=== PATIENT | male | born 1940 | race Hispanic/Latino ===

== ENCOUNTER 2017-05-09 12:20 | Emergency (ER) | payer MEDICARE ==
[2017-05-09 13:24] LABS: #Basophils 0.1 thou/uL (0.0-0.2); #Eosinphils 0.4 thou/uL (0.0-0.7); #Monocytes 0.5 thou/uL (0.11-0.59); #Neutrophils 4.1 thou/uL (1.40-6.50); %Eosinophils 6.9 % (0.0-10.0); %Lymphocytes 16.9 % (21.0-51.0); %Monocytes 7.4 % (0.0-10.0); Mean Platelet Volume 7.8 fL (7.4-10.4); Red Blood Cell (RBC) Count 5.18 mill/uL (4.70-6.10); White Blood Cell (WBC) Count 6.1 thou/uL (4.8-10.8)
[2017-05-09 13:36] LABS: ALT (SGPT) 23 U/L (8-55); AST (SGOT) 14 U/L (5-34); Alkaline Phosphatase 104 U/L (40-150); Anion Gap 13 mmol/L (10-20); BUN (Urea Nitrogen) 23 mg/dL (8.4-25.7); Calc. Creatinine Clearance 0 mL/min (70-130); Calcium 9.2 mg/dL (7.8-10.44); Carbon Dioxide 27 mmol/L (23-31); Chloride 102 mmol/L (98-107); Estimated GFR-MDRD 86; Globulin 3.7 g/dL (2.4-3.5); Lipase 21 U/L (8-78); Protein, Total 7.8 g/dL (5.8-8.1)
[2017-05-09] MEDS ORDERED: traMADol HCl 50 MG TAB ONE (14:11)
--- NOTE | 2017-05-09 14:54 | ULT ---
RIGHT UPPER QUADRANT ULTRASOUND: Comparison: None. History: Abdominal pain. Technique: Multiplanar grayscale and color doppler images were obtained in a right upper quadrant abd ominal ultrasound. FINDINGS: The liver demonstrates increased echogenicity without focal lesions or intrahepatic biliary dilatatio n. A large gallstone is seen in the gallbladder. There is no gallbladder wall thickening or perichole cystic fluid. The common bile duct could not be visualized. There is a cyst in the right kidney measuring 2.2 cm in greatest dimension. There is no evidence of h ydronephrosis or calculus in the right kidney which measures 11.9 cm in length. IMPRESSION: 1. Cholelithiasis. 2. Fatty liver. 3. Right renal cyst. POS: NITZA
== END 2017-05-09 14:20 | disposition home or self-care (01) ==
LOC: SCSER 12:20
DX: K80.20 Calculus of gallbladder without cholecystitis without obstruction (principal); E11.9 Type 2 diabetes mellitus without complications; E78.5 Hyperlipidemia, unspecified; I10 Essential (primary) hypertension; Z79.899 Other long term (current) drug therapy; Z79.84 Long term (current) use of oral hypoglycemic drugs
CPT/HCPCS: 76705; 80053; 83690; 85025

== ENCOUNTER 2018-08-12 17:20 | Emergency (ER) | payer MEDICARE ==
--- NOTE | 2018-08-12 18:08 | RAD ---
CHEST TWO VIEWS: History: Cough. Comparison: 12-26-17 FINDINGS: There is mild ectasia of the thoracic aorta. Lungs are mildly hypoinflated with vascular crowding and subsegmental atelectasis. No acute osseous abnormality. IMPRESSION: Hypoinflation, otherwise no acute intrathoracic abnormality. POS: H
== END 2018-08-12 18:20 | disposition home or self-care (01) ==
LOC: SCSER 17:20
DX: J06.9 Acute upper respiratory infection, unspecified (principal); E11.9 Type 2 diabetes mellitus without complications; E78.5 Hyperlipidemia, unspecified; I10 Essential (primary) hypertension; Z79.84 Long term (current) use of oral hypoglycemic drugs; Z79.82 Long term (current) use of aspirin; Z79.899 Other long term (current) drug therapy
CPT/HCPCS: 71046

== ENCOUNTER 2021-10-13 11:33 | Emergency (ER) | payer MEDICARE | END 2021-10-13 13:10 | disposition home or self-care (01) | LOC: ERS 11:33 | DX: L25.9 Unspecified contact dermatitis, unspecified cause (principal); E11.9 Type 2 diabetes mellitus without complications; E78.5 Hyperlipidemia, unspecified; I10 Essential (primary) hypertension; Z79.899 Other long term (current) drug therapy | CPT/HCPCS: 99282 ==

== ENCOUNTER 2023-04-22 21:40 | Emergency (ER) | payer MEDICARE | END 2023-04-23 00:22 | disposition home or self-care (01) | LOC: ERS 21:40 | DX: S30.0XXA Contusion of lower back and pelvis, initial encounter (principal); J18.9 Pneumonia, unspecified organism; E11.9 Type 2 diabetes mellitus without complications; I10 Essential (primary) hypertension; E78.5 Hyperlipidemia, unspecified; W18.39XA Other fall on same level, initial encounter | CPT/HCPCS: 71046; 72170; 72220 ==

== ENCOUNTER 2023-06-20 11:47 | Emergency (ER) | payer MEDICARE ==
[2023-06-20 14:57] LABS: SARS-CoV-2 NAA Rapid Test Not Detected (NotDetected)
== END 2023-06-20 15:11 | disposition home or self-care (01) ==
LOC: ERS 11:47
DX: J06.9 Acute upper respiratory infection, unspecified (principal); E11.9 Type 2 diabetes mellitus without complications; I10 Essential (primary) hypertension
CPT/HCPCS: 0240U; 71045

== ENCOUNTER 2025-02-05 19:15 | Emergency (ER) | payer MEDICARE, OTHER ==
[2025-02-05] MEDS ORDERED: Boostrix 0.5 ML (Tdap) VIAL (>/=7 yrs of age) ONE (19:23)
[2025-02-05 19:41] LABS: #Basophils 0.07 10x3/uL (0.0-0.2); #Eosinophils 0.22 10x3/uL (0.0-0.7); #Monocytes 0.48 10x3/uL (0.11-0.59); #Neutrophils 6.12 10x3/uL (1.40-6.50); %Basophils 0.9 % (0.0-1.0); %Eosinophils 2.9 % (0.0-10.0); %Lymphocytes 7.7 % (21.0-51.0); %Monocytes 6.4 % (0.0-10.0); %Neutrophils 81.2 % (42.0-75.0); Hematocrit 47.8 % (42.0-52.0); Hemoglobin 15.6 g/dL (14.0-18.0); Mean Corpuscular Hemoglobin 29.4 pg (27.0-31.0); Mean Corpuscular Volume 90.0 fL (78.0-98.0); Platelet Count 168 10x3/uL (130-400); Red Blood Cell (RBC) Count 5.31 mill/uL (4.70-6.10); White Blood Cell (WBC) Count 7.54 10x3/uL (4.8-10.8)
[2025-02-05 19:56] LABS: INR-International Normal Ratio 1.0; Prothrombin Time 13.5 sec (12.0-14.7)
[2025-02-05 19:57] LABS: PTT 23.6 sec (22.9-36.1)
[2025-02-05 20:03] LABS: ALT (SGPT) 32 U/L (Less than 45); AST (SGOT) 33 U/L (11-34); Albumin 4.2 g/dL (3.1-4.5); Alkaline Phosphatase 112 U/L (40-110); Anion Gap 13 mmol/L (10-20); BUN (Urea Nitrogen) 20 mg/dL (8.4-25.7); Bilirubin, Total 1.1 mg/dL (0.3-1.2); Calc. Creatinine Clearance 0 mL/min (70-130); Calcium 9.3 mg/dL (7.8-10.44); Carbon Dioxide 20 mmol/L (23-31); Chloride 111 mmol/L (98-107); Globulin 3.0 g/dL (2.4-3.5); Glucose 233 mg/dL (83-110); Magnesium 2.0 mg/dL (1.6-2.6); Potassium 4.1 mmol/L (3.5-5.1); Sodium 140 mmol/L (136-145)
[2025-02-05] MEDS ORDERED: Glucagon 1 MG/ML KIT IM PRN (20:30)
[2025-02-05] MEDS ORDERED: Dextrose 50% Abboject 50 ML SYRINGE SLOW IVP PRN (20:30)
[2025-02-05] MEDS ORDERED: Acetaminophen 325 MG TAB PO PRN (20:30)
[2025-02-05] MEDS ORDERED: TETANUS, DIPHTHERIA TOX,ADULT (TDVAX) 0.5 ML VIAL IM ONE (20:30)
[2025-02-05] MEDS ORDERED: Rib Fracture Protocol IV SCH (20:30)
[2025-02-05] MEDS ORDERED: Ondansetron PF 4 MG/2 ML Vial IVP PRN (20:30)
[2025-02-05] MEDS ORDERED: Ondansetron PF 4 MG/2 ML Vial ONE (22:38)
[2025-02-05] MEDS ORDERED: Ketorolac Tromethamine 30 MG (1 mL) VIAL IVP SCH (23:59)
== END 2025-02-06 01:48 | disposition short-term general hospital (02) ==
LOC: ERS 19:15
DX: S22.41XA Multiple fractures of ribs, right side, initial encounter for closed fracture (principal); S22.049A Unspecified fracture of fourth thoracic vertebra, initial encounter for closed fracture; S22.059A Unspecified fracture of T5-T6 vertebra, initial encounter for closed fracture; S32.10XA Unspecified fracture of sacrum, initial encounter for closed fracture; S80.811A Abrasion, right lower leg, initial encounter; J93.9 Pneumothorax, unspecified; R09.02 Hypoxemia; I10 Essential (primary) hypertension; E11.9 Type 2 diabetes mellitus without complications; Z75.8 Other problems related to medical facilities and other health care; W11.XXXA Fall on and from ladder, initial encounter; Y93.H2 Activity, gardening and landscaping
CPT/HCPCS: 70450; 71045; 71275; 72125; 72170; 72191; 73060; 73590; 74174; 80053; 83605; 83735; 84484; 85025; 85610; 85730; 90715; 93005; J2270; J2405; J3010; J7030; 90471; 96374; 96375; 96376